=== PATIENT | male | born 1970 | race Two or more races ===

== ENCOUNTER 2021-12-23 23:25 | Emergency (ER) | payer MEDICAID ==
[~2021-12-23] VITALS: Ht 175.3 cm; Wt 81.8 kg
[2021-12-23 23:41] VITALS: BP 143/97
[2021-12-24] MEDS ORDERED: ibuprofen tablet 400 MG TABLET PO ONE (00:25)
[2021-12-24] MEDS ORDERED: oxyCODONE/APAP 10/325mg tablet PO ONE (00:25)
--- NOTE | 2021-12-24 01:34 | NUR ---
DISCHARGE INTERVENTION ONLY
== END 2021-12-24 01:34 | disposition home or self-care (01) ==
LOC: ER 23:26
DX: M79.601 Pain in right arm (principal); Z88.6 Allergy status to analgesic agent; Z56.0 Unemployment, unspecified
CPT/HCPCS: 73030; 73080; 93005; 99284; A4565